=== PATIENT | male | born 1980 | race Caucasian/White ===

== ENCOUNTER 2019-12-07 17:37 | Emergency (ER) | payer OTHER ==
[2019-12-07 17:51] VITALS: BMI 25.7
--- NOTE | 2019-12-07 18:28 | PDOC ---
History of Present Illness - General Chief Complaint: Chest Pain Stated Complaint: CHEST PAIN Time Seen by Provider: 12/07/19 18:08 - History of Present Illness Initial Comments: Rubens Marmolejo is a 39yo man with a PMH of SVT s/p ablation (4yrs ago), current 1PPD smoker, prior substance abuse (cocaine, last used several years ago) who presents with acute onset of mid-sternal chest pain that started earlier this afternoon. He states that the pain started while he was sitting at his desk about 3 hours ago. He reports associated nausea, SOB, and sweating as well as a smir-gca-[id number] sensation in his left arm from the wrist to mid-upper arm. He denies any palpitations and says that this does not feel similar to his prior SVT. The pain is not related to exertion or position and did not start after eating. He says that he ate salad for lunch and denies history of heartburn, current substance use, heavy caffeine or alcohol use, or any daily home meds. He says that he is able to run a mile without any symptoms. Mr Marmolejo says that he took 324mg of chewable aspirin and drove himself to the ED for evaluation as he thought he was having a heart attack. Past History - Medical History Allergies/Adverse Reactions: Allergies Allergy/AdvReac Type Severity Reaction Status Date / Time No Known Allergies Allergy Unverified 12/07/19 17:51 Cardiac Disorders: Yes (SVT,) COPD: Yes - Psycho-Social/Smoking History Smoking History: Current every day smoker Have you smoked in the past 12 months: Yes Number of Cigarettes Smoked Daily: 25 Information on smoking cessation initiated: Yes - Substance Abuse Hx (Audit-C & DAST Scrn) How often the patient has a drink containing alcohol: Monthly or less Score: In Men: 4 or > Positive; In Women: 3 or > Positive: 1 Screen Result (Pos requires Nsg. Audit-10AR): Negative In the last yr the pt used illegal drug/Rx for NonMed reason: No Score: Yes response is considered Positive: 0 Screen Result (Positive result requires Nsg. DAST-10): Negative Review of Systems - Review of Systems Comments:: General: No fevers, no chills, no weight or appetite change, no malaise, +sweating HEENT: No changes in vision, no changes in hearing, no congestion, no sore throat CV: + chest pain, no palpitations, no LE edema Pulm: + SOB, no cough, no wheezing GI: No nausea or vomiting, no change in bowel habits, no melena : No frequency, no urgency, no dysuria Musc: No back pain, no joint swelling, no recent injury Skin: No rash, no lesions, no erythema Endo: No excessive thirst, no heat/cold intolerance Heme: No unusual bruising or bleeding, no swollen glands Neuro: No syncope, no numbness/tingling, no focal weakness Vasc: No claudication Psych: No recent change in mood, no SI or HI *Physical Exam - Vital Signs Last Vital Signs Temp Pulse Resp BP Pulse Ox 99.1 F 82 18 130/90 96 12/07/19 17:47 12/07/19 17:47 12/07/19 17:47 12/07/19 17:47 12/07/19 17:47 - Physical Exam General: In no acute distress HEENT: Atraumatic, PERRL, EOMI, MMM, voice normal, normal neck ROM Cards: RRR, no murmur appreciated Pulm: Comfortable on room air, clear to auscultation bilaterally Abd: Soft, nondistended. Mild epigastric TTP Ext: Atraumatic. No LE edema. ROM intact. WWP Skin: Normal color, no rashes or lesions Neuro: A&Ox3, CN grossly intact, normal speech, motor/sensory grossly intact and symmetric Psych: Mood appropriate to situation Medical Decision Making - Medical Decision Making 12/07/19 18:25 Rubens Marmolejo is a 39yo man with a PMH of SVT s/p ablation (4yrs ago), current 1PPD smoker, prior substance abuse (cocaine, last used several years ago) who presents with acute onset of mid-sternal chest pain that started earlier this afternoon with associated SOB, nausea, diaphoresis and left arm paresthesia. He has continued pain. - EKG completed, NSR with HR 86, normal axis, no t-wave or ST changes - Given cardiac history, current smoking, associated symptoms will send cardiac workup including CBC, CMP, trop, and CXR - Possible GERD/gastritis, anxiety. Maalox, famotidine ordered. - Pt took aspirin at home 12/07/19 19:16 - CXR completed, no acute abnormalities appreciated - Labs pending - Remainder of ED care will be completed by Dr Quiñonez. Plan for 2nd trop given concerning features to history Discussed with Dr Olamide Marcano PGY3 Discharge - Discharge Information Problems reviewed: Yes Clinical Impression/Diagnosis: Chest pain Qualifiers: Chest pain type: unspecified Qualified Code(s): R07.9 - Chest pain, unspecified Condition: Stable - Follow up/Referral - Patient Discharge Instructions - Post Discharge Activity
[2019-12-07] MEDS ORDERED: FAMOTIDINE 20 MG TABLET PO ONE (18:30)
[2019-12-07] MEDS ORDERED: MAG HYDROX/AL HYDROX/SIMETH -MYLANTA- ORAL SUSPENSION PO ONE (18:30)
[2019-12-07] MEDS ORDERED: MAG HYDROX/AL HYDROX/SIMETH 30 ML UNIT-DOSE CUP ONE (19:03)
[2019-12-07] MEDS ORDERED: FAMOTIDINE 20 MG TABLET ONE (19:03)
--- NOTE | 2019-12-07 19:08 | PDOC ---
Documentation entered by Mindy Cervantes SCRIBE, acting as scribe for Amy Quiñonez DO. Amy Quiñonez DO: This documentation has been prepared by the Billy johnson Brenda, SCRIBE, under my direction and personally reviewed by me in its entirety. I confirm that the documentation accurately reflects all work, treatment, procedures, and medical decision making performed by me. Attending Attestation - Resident Resident Name: Cici Marcano - ED Attending Attestation I have performed the following: I have examined & evaluated the patient, The case was reviewed & discussed with the resident, I agree w/resident's findings & plan, Exceptions are as noted - HPI HPI: 12/07/19 20:09 The patient is a 39 year old male with a significant PMH of tobacco use and SVT s/p ablation who presents to the emergency department for evaluation of an episode of chest pain this afternoon. Patient notes that this afternoon while sitting at his desk at work, he began to feel midsternal chest pain accompanied by diaphoresis. He also associates left arm tingling during the episode of chest pain. He reports going out and buying 4 baby aspirins to no relief. He notes that the sweating lasted approximately 2 hours. He notes that the pain has resolved now and he currently feels better. Patient endorses feeling highly stressed at home, being the father of 5 kids. He reports he is going to see his PCP Dr. Garcia next week but wanted to get evaluated. The patient denies shortness of breath, headache and dizziness. Denies fever, nausea, vomiting, diarrhea and constipation. Denies dysuria, frequency, urgency and hematuria. Allergies: NKA Social history: Tobacco use. PCP: Jose No Utility Tech - Physicial Exam PE: 12/07/19 19:02 GENERAL: Awake, alert, and fully oriented, in no acute distress LUNGS: Breath sounds equal, clear to auscultation bilaterally. No wheezes, and no crackles HEART: Regular rate and rhythm, normal S1 and S2, no murmurs, rubs or gallops ABDOMEN: Soft, nontender, normoactive bowel sounds. No guarding, no rebound. No masses EXTREMITIES: Normal range of motion, no edema. No clubbing or cyanosis. No cords, erythema, or tenderness NEUROLOGICAL: Cranial nerves II through XII grossly intact. Normal speech, normal gait SKIN: Warm, Dry, normal turgor, no rashes or lesions noted. 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 Garcia for next week discussed that the cardiac workup is not complete and we are still unsure what caused his cp today. Note: The patient insists on leaving the emergency dept and is signing out against medical advice. The patient understands the risks and complications that may result from the refusal of medical care and admission which includes and permanent disability. The patient has the mental capacity of understanding the risks of refusing care and is capable of making an informed decision. The patient was instructed to return to the emergency department should he change his mind regarding medical care or should his condition worsen. The patient signed the Against Medical Advice form. Discharge - Discharge Information Problems reviewed: Yes Clinical Impression/Diagnosis: Chest pain Qualifiers: Chest pain type: unspecified Qualified Code(s): R07.9 - Chest pain, unspecified Condition: Unchanged/Unknown Disposition: AGAINST MEDICAL ADVICE - Follow up/Referral Referrals: Cruz Choe MD [Staff Physician] - Matias Durand MD [Staff Physician] - Watson Hoover MD [Staff Physician] - - Patient Discharge Instructions Patient Printed Discharge Instructions: DI for Chest Pain Additional Instructions: Please call the print line supervisor tomorrow yahir. Please return to the ER with any further concerns or complaints. Please follow up with your PMD yahir. - Post Discharge Activity
[2019-12-07 19:29] LABS: BASO % 0.5 % (0-2.0); EOS % 1.4 % (0-4.5); HEMATOCRIT 43.4 % (35.4-49); HEMOGLOBIN 14.8 GM/dL (11.7-16.9); MCH 33.1 pg (25.7-33.7); MCHC 34.1 g/dl (32.0-35.9); MEAN CELL VOLUME 97.1 fl (80-96); MEAN PLT VOLUME 8.2 fl (7.5-11.1); MONO % 7.4 % (3.8-10.2); NEUT % 57.7 % (42.8-82.8); PLATELET COUNT 231 K/MM3 (134-434); RBC 4.47 M/mm3 (4.00-5.60); RDW 13.7 % (11.9-15.9); WHITE BLOOD COUNT 8.2 K/mm3 (4.0-10.0)
[2019-12-07 20:02] LABS: ALK PHOS 42 U/L (45-117); ANION GAP 4 MMOL/L (8-16); BILIRUBIN,TOTAL 0.6 mg/dL (0.2-1); BLOOD UREA NITROGEN 10.6 mg/dL (7-18); CHLORIDE 107 mmol/L (98-107); CO2 28 mmol/L (21-32); CREATININE 0.9 mg/dL (0.55-1.3); GLUCOSE,RANDOM 88 mg/dL (74-106); POTASSIUM 3.9 mmol/L (3.5-5.1); SGOT/AST 24 U/L (15-37); SGPT/ALT 40 U/L (13-61); SODIUM 140 mmol/L (136-145); TOT PROT 7.3 g/dl (6.4-8.2)
[2019-12-07 20:39] VITALS: BP 139/87; PULSE 66; TEMP 97.6
--- NOTE | 2019-12-08 09:20 | EKG ---
Test Reason : Blood Pressure : / mmHG Vent. Rate : 086 BPM Atrial Rate : 086 BPM P-R Int : 110 ms QRS Dur : 094 ms QT Int : 378 ms P-R-T Axes : 072 033 032 degrees QTc Int : 452 ms SINUS RHYTHM WITH SHORT MD POSSIBLE LEFT ATRIAL ENLARGEMENT NONSPECIFIC INTRAVENTRICULAR CONDUCTION DEFECT NONSPECIFIC ST ABNORMALITY NO PREVIOUS ECGS AVAILABLE Confirmed by ADI HOANG MD ([id number]) on 12/08/2019 9:19:43 AM Referred By: Confirmed By:ADI HOANG MD
== END 2019-12-07 21:03 | disposition left against medical advice (07) ==
LOC: JER 17:37
DX: R07.9 Chest pain, unspecified (principal)
CPT/HCPCS: 36415; 71046-TC-FY; 80053; 82550; 84484; 85025; 93005; 93010; 99285-25